=== PATIENT | male | born 1960 | race Caucasian/White ===

== ENCOUNTER 2017-11-20 11:15 | Emergency (ER) | payer OTHER ==
[2017-11-20 11:20] VITALS: BP 149/89
--- NOTE | 2017-11-20 11:26 | ER Report ---
History and Physical Time Seen By MD: 11:25 Hx. of Stated Complaint: PATIENT HAS BEEN HAVING PAIN IN THE LOWER RIGHT JAW/GUMS AND TEETH FOR THE LAST FEW DAYS BUT IT GOT REALLY BAD LAST NIGHT. HPI/ROS CHIEF COMPLAINT: Dental pain HISTORY OF PRESENT ILLNESS: 57-year-old male patient presents to emergency room with complaint of dental pain. Patient states it is on the right side of his mouth. He states that it is along the right side and the entire area hurts. Patient states that he has taken ibuprofen and tried salt water rinses with no improvement. Patient states the pain seemed to worsen last night. Patient states has been quite some time since he has seen a dentist, at least 3 years. He denies having any fevers or chills. He denies having any nausea, vomiting and diarrhea. Patient states pain has been significant. Allergies: Coded Allergies: No Known Drug Allergies (Unverified , 11/20/17) Home Meds Active Scripts Hydrocodone Bit/Acetaminophen (HYDROCODON-ACETAMINOPHEN 5-325) 1 Each Tablet, 1 EACH PO Q4-6H Y for PAIN, #10 TAB Prov:DEREK TORRES 11/20/17 Amoxicillin 500 Mg Tab (AMOXICILLIN 500 MG TAB) 500 Mg Tablet, 1 TAB PO Q8H, # 30 TAB Prov:DEREK TORRES 11/20/17 Past Medical/Surgical History Patient denies any pertinent medical history. Patient has surgical history of inguinal hernia repair, wrist surgery, eye surgery. Reviewed Nurses Notes: Yes Constitutional Vital Sign - Last 24 Hours 11/20/17 11:20 Temp 97.5 Pulse 65 Resp 20 B/P (MAP) 149/89 Pulse Ox 97 O2 Delivery Room Air Physical Exam General appearance: Alert no distress. Respiratory: Chest is non tender, lungs are clear to auscultation. Cardiac: Regular rate and rhythm. ENT: Tympanic membranes are pearly-garcia, auditory canals are patent, mucous membranes are moist. Patient does have several teeth are missing, and does have a large laure to tooth #29. No obvious abscess noted. Tooth #29 is tender to palpation. DIFFERENTIAL DIAGNOSIS: After history and physical exam differential diagnosis was considered for laure with infection. Medical Decision Making ED Course/Re-evaluation ED Course Patient was admitted to an exam room, history and physical were obtained. Differential diagnoses were considered. On examination patient does have large cavity to tooth #29. He also has several teeth are missing. I discussed findings with the patient and his significant other. We will go ahead and start him on antibiotics and a limited supply of pain medication. He is follow-up with a dentist as soon as possible. I discussed with patient who verbalized understanding and agreement with plan. Decision to Disposition Date: Nov 20, 2017 Decision to Disposition Time: 11:33 Depart Departure Latest Vital Signs Vital Signs Date Time Temp Pulse Resp B/P (MAP) Pulse Ox O2 Delivery O2 Flow Rate FiO2 11/20/17 11:20 97.5 65 20 149/89 97 Room Air Impression: Primary Impression: Infected dental caries Condition: Improved Disposition: HOME OR SELF-CARE New Scripts Hydrocodone Bit/Acetaminophen (HYDROCODON-ACETAMINOPHEN 5-325) 1 Each Tablet 1 EACH PO Q4-6H Y for PAIN, #10 TAB Prov: DEREK TORRES 11/20/17 Amoxicillin 500 Mg Tab (AMOXICILLIN 500 MG TAB) 500 Mg Tablet 1 TAB PO Q8H, #30 TAB Prov: DEREK TORRES 11/20/17 Patient Instructions: Toothache (ED) Additional Instructions: You may take Ibuoprofen in addition to the pain medication as needed for pain. Rinse mouth with warm salt water after every meal. Eat soft foods. Follow up with your dentist as soon as possible, call to make an appointment. Return to the ER if condition worsens. DEREK TORRES Nov 20, 2017 11:25
[2017-11-20] MEDS ORDERED: HYDR-385 PO (11:32)
[2017-11-20] MEDS ORDERED: AMOX500T10 PO (11:32)
== END 2017-11-20 11:52 | disposition home or self-care (01) ==
LOC: ER 11:16
DX: K04.7 Periapical abscess without sinus (principal)
CPT/HCPCS: 99282